=== PATIENT | male | born 1955 | race Caucasian/White ===

== ENCOUNTER 2018-09-04 07:15 | Inpatient (IN) | payer MEDICARE, BC ==
[~2018-09-04] VITALS: Ht 177.8 cm; Wt 96.9 kg
[~2018-09-04 07:15] MED LIST: ACET500 PO; AMOCLA875; AMOX1XR PO; ASPI325 PO; ASPI325EC PO; ATOR20; ATOR20 PO; Augmentin Xr 11 EACH; CIPR750 PO; CLOP75 PO; COLL250TO; COLL250TO TOP; Flagyl500 MG PO; GABA600 PO; GLIP10ER PO; Glucophage1000 MG PO; HYDMOR2 PO; LISI5 PO; Lovastatin20 MG; METF500 PO; N-ACETYL-L-CYS600 MG; N-ACETYL-L-CYS600 MG PO; NEBI5; NITR.4SL; OMEP20ER; OXYACE5T; OXYACE5T PO; PANT40 PO; PROM25; PROM25 PO; Percocet 10-321 EACH PO; Prozac20 MG PO; ROXICODONE5 MG PO; Silvadene20 GM TOP; [UNRECOGNIZED DRUG - OTHER]
[2018-09-04 07:34] LABS: Hematocrit 34.9 % (37.0-53.0); Hemoglobin 12.6 g/dL (13.5-17.5); Mean Corpuscular HGB 34.1 pg (26.0-34.0); Mean Corpuscular HGB Conc 36.1 g/dL (31.5-36.5); Mean Corpuscular Volume 94 fL (80-100); Mean Platelet Volume 9.1 fL (9.1-12.4); Platelet Count 220 K/mm3 (150-400); RDW Coefficient Variation 11.9 % (11.7-14.2); RDW Standard Deviation 40.8 fL (35.1-46.3); White Blood Cell Count 6.84 K/mm3 (4.00-11.30)
[2018-09-04 07:49] LABS: International Normalized Ratio 1.03; Prothrombin Time Results 10.9 Sec (9.7-11.5)
[2018-09-04 08:00] LABS: Alanine Aminotransfer (ALT/SGP 64 U/L (12-78); Albumin/Globulin Ratio 1.2 (0.8-1.8); Alk Phos 63 U/L (50-136); Anion Gap 12 mmol/L (6-16); Aspartate Aminotrans (AST/SGOT 48 U/L (12-37); Bilirubin, Total 0.3 mg/dL (0.1-1.0); Blood Urea Nitrogen 12 mg/dL (8-24); Bun/Creatinine Ratio 20.4 (12.0-20.0); CHOL/HDL RATIO 2.7; CO2, Blood 23 mmol/L (21-32); Calcium, Blood 9.7 mg/dL (8.5-10.1); Chloride, Blood 106 mmol/L (98-108); Cholesterol 170 mg/dL (50-200); Creatinine, Blood 0.59 mg/dL (0.60-1.20); Globulin, Blood 3.4 g/dL (2.2-4.0); Glomerular Filtration Rate >60 (60-); Glucose, Blood 137 mg/dL (70-99); HDL Cholesterol 63 mg/dL (>39); LDL/HDL RATIO Unable to Calculate; Low Density Lipoprotein Chol Unable to Calculate mg/dL (0-110); Magnesium, Blood 1.9 mg/dL (1.6-2.4); Potassium, Blood 3.4 mmol/L (3.5-5.5); Sodium, Blood 141 mmol/L (136-145); Total Protein, Blood 7.4 g/dL (6.4-8.2); Triglycerides 477 mg/dL (30-160); Troponin I 0.059 ng/mL (0.000-0.040); Very Low Density Lipoprot Chol Unable to Calculate mg/dL (6-32)
[2018-09-04] MEDS ORDERED: [UNRECOGNIZED DRUG - CODE] PO (08:59)
[2018-09-04] MEDS ORDERED: [UNRECOGNIZED DRUG - CODE] PO (09:02)
[2018-09-04] MEDS ORDERED: [UNRECOGNIZED DRUG - CODE] PO (09:06)
[2018-09-04 11:08] LABS: CHOL/HDL RATIO 2.4; Cholesterol 158 mg/dL (50-200); HDL Cholesterol 66 mg/dL (>39); LDL/HDL RATIO 0.7; Low Density Lipoprotein Chol 48 mg/dL (0-110); Magnesium, Blood 1.9 mg/dL (1.6-2.4); Phosphorus, Blood 4.2 mg/dL (2.5-4.9); Triglycerides 221 mg/dL (30-160); Very Low Density Lipoprot Chol 44 mg/dL (6-32)
[2018-09-04 11:23] LABS: Creatine Kinase MB 19.3 ng/mL (0.0-3.6); Creatine Kinase MB Index 8.7 (0.0-4.0)
[2018-09-04 11:33] LABS: Troponin I 4.41 ng/mL (0.000-0.040)
[2018-09-04] MEDS ORDERED: METO25ER PO (11:44)
--- NOTE | 2018-09-04 11:44 | NUR ---
Echocardiogram completed.
[2018-09-04] MEDS ORDERED: THERA1 EACH PO (11:51)
--- NOTE | 2018-09-04 16:11 | NUR ---
ICU ADMIT PT ARRIVES TO ICU 15 AT 1535 FROM [facility] PCU STATUS, POST ANGIOGRAM. PT AWAKE, ALERT, AND ORIENTED. VITAL SIGNS STABLE. MONITOR SHOWS SINUS RHYTHM, NO ST ELEVATION NOTED. PT DENIES CHEST PAIN, DENIES NAUSEA, DENIES DYSPNEA. TR BAND IN PLACE TO R WRIST WITH 8ML AIR IN BALLOON. DISTAL EXTREMITY WITH PALPABLE PULSE, WARM AND PINK. PT DENIES ANY NUMBNESS, TINGLING OR PAIN TO R HAND. DR ZAYAS TO ROOM TO DISCUSS PLAN OF CARE WITH PT AND HIS AT BEDSIDE. PT HAS MULTI VESSEL DISEASE AND PLAN IS FOR TRANSFER TO [facility] FOR FURTHER CORONARY INTERVENTION. AWAITING BED ASSIGNMENT AT [facility] AT THIS TIME. PT PROVIDED WITH CALL LIGHT AND INSTRUCTED TO CALL WITH ANY CHEST PAIN, NAUSEA, DYSPNEA OR OTHER NEEDS. PT'S AT BEDSIDE.
[2018-09-04 17:14] LABS: Creatine Kinase MB 33.4 ng/mL (0.0-3.6); Creatine Kinase MB Index 9.8 (0.0-4.0)
[2018-09-04 17:18] LABS: Troponin I 16.6 ng/mL (0.000-0.040)
--- NOTE | 2018-09-04 17:55 | NUR ---
[facility] BED ASSIGMENT RECEIVED. PT TO TRANSFER TO ROOM [address] LAINEZ. WILL CALL REPORT TO LEXIS LERMA TO ASSUME CARE OF PT. PT AND SPOUSE UPDATED ON PLAN OF CARE.
--- NOTE | 2018-09-04 18:36 | NUR ---
[facility] DEPARTED WITH PT TO [facility] AT 1833. R RADIAL SITE AND ALL VITALS STABLE UPON DEPARTURE. HEPARIN AND NS INFUSING PER ORDERS ON TRANSFER. PT NOTIFIED . ALL BELONGINGS WITH PT.
[2018-09-04 18:52] LABS: U Amphetamine Screen Not Detected; U Barbituate Screen DETECTED; U Benzodiazapine Screen Not Detected; U Buprenorphine Screen Not Detected; U Cannabinoids Screen DETECTED; U Cocaine Screen Not Detected; U Methadone Screen Not Detected; U Methamphetamine Screen Not Detected; U Opiates Screen DETECTED; U Oxycodone Screen Not Detected; U Phencyclidine Screen Not Detected; U Propoxyphene Screen Not Detected
== END 2018-09-04 18:30 | disposition short-term general hospital (02) | DRG 281 ==
LOC: ER 07:15 → ERHOLD 07:16 → ICUW 15:40
PROVIDERS: Emergency Medicine; ADMIT Family Medicine
PROC: B2111ZZ Fluoroscopy of Multiple Coronary Arteries using Low Osmolar Contrast (ICD-10-PCS; principal; 2018-09-04)
PROC: 4A023N7 Measurement of Cardiac Sampling and Pressure, Left Heart, Percutaneous Approach (ICD-10-PCS; 2018-09-04)
DX: I21.9 Acute myocardial infarction, unspecified (principal); I50.32 Chronic diastolic (congestive) heart failure; I25.10 Atherosclerotic heart disease of native coronary artery without angina pectoris; I25.5 Ischemic cardiomyopathy; J44.9 Chronic obstructive pulmonary disease, unspecified; F17.210 Nicotine dependence, cigarettes, uncomplicated; K44.9 Diaphragmatic hernia without obstruction or gangrene; E11.65 Type 2 diabetes mellitus with hyperglycemia; E78.1 Pure hyperglyceridemia; E11.51 Type 2 diabetes mellitus with diabetic peripheral angiopathy without gangrene; Z89.512 Acquired absence of left leg below knee; E87.6 Hypokalemia; Z79.84 Long term (current) use of oral hypoglycemic drugs; I11.0 Hypertensive heart disease with heart failure
CPT/HCPCS: 36415; 71260; 80053; 80061; 82550; 82553; 82947; 83735; 84100; 84484; 85027; 85610; 85730; 86850; 86900; 86901; 93005; 93010; 93458; 96374; 96375; 96376; 99152; 99285-25; C1769; C1894; C8929; J1644; J2060; J2250; J2270; J2405; J2550; J3010; J7030; J7040; Q9957; Q9967